=== PATIENT | female | born 1975 | race Caucasian/White ===

== ENCOUNTER → 2019-07-25 | Outpatient (CLI) | payer OTHER ==
--- NOTE | 2019-07-26 10:26 | MM ---
Reason for exam: screening (asymptomatic). Last mammogram was performed 3 years and 8 months ago. History: Took hormonal contraceptives for 3 years. Physical Findings: A clinical breast exam by your physician is recommended on an annual basis and results should be correlated with mammographic findings. MG 3D Screening Mammo W/Cad Bilateral CC and MLO view(s) were taken. Prior study comparison: December 03, 2015, bilateral MG 3d screening mammo w/cad. November 08, 2012, CAD bilateral diagnostic mammogram. The breast tissue is extremely dense which could obscure a lesion on mammography. There is a questionable 1.4cm obscbured mass in the upper outer quadrant 10cm from nipple within extremely dense fiborglandular tissue. There are regional right upper outer quadrant calcifications spanning 3.4cm from nipple to 10cm from nipple. No suspicious abnormality on the left breast. ASSESSMENT: Incomplete: need additional imaging evaluation, BI-RAD 0 RECOMMENDATION: Special view mammogram and ultrasound of the right breast. [facility] will attempt to contact patient to return for supplemental views and ultrasound.
== END | disposition home or self-care (01) ==
LOC: RADMAMWWP 09:54
PROVIDERS: ATTEND Family Medicine
DX: Z12.31 Encounter for screening mammogram for malignant neoplasm of breast (principal)
CPT/HCPCS: 77063; 77067

== ENCOUNTER → 2019-08-09 | Outpatient (CLI) | payer OTHER ==
--- NOTE | 2019-08-10 13:36 | MM ---
Reason for exam: additional evaluation requested from abnormal screening. Last mammogram was performed less than 1 month ago. History: Family history of breast cancer in aunt. Took hormonal contraceptives for 3 years. Physical Findings: Nurse did not find any significant physical abnormalities on exam. MG 3D Work Up W/Cad RT CC and MLO view(s) were taken of the right breast. Prior study comparison: July 25, 2019, bilateral MG 3d screening mammo w/cad. December 03, 2015, bilateral MG 3d screening mammo w/cad. The breast tissue is extremely dense which could obscure a lesion on mammography. There are segmental right upper outer quadrant calcifications spanning 8cm with only few non-grouped calcifications seen in 2016. These results were verbally communicated with the patient and result sheet given to the patient on 08/09/19. ASSESSMENT: Incomplete: need additional imaging evaluation, BI-RAD 0 RECOMMENDATION: Ultrasound of the right breast.
--- NOTE | 2019-08-10 13:38 | USB ---
Reason for exam: additional evaluation requested from abnormal screening. History: Family history of breast cancer in aunt. Took hormonal contraceptives for 3 years. US Breast Workup Limited RT Right limited breast ultrasound including focal area of concern, retroareolar and axilla demonstrates a 1.1 x 1.1 x 0.6cm oval, clustered, cystic lesion at 10 o'clock, a 0.9 x 1.2 x 0.5cm oval, cystic lesion at 10 o'clock, a 0.5 x 0.8 x 0.5cm oval, clustered, cystic lesion at 11 o'clock, a 0.5 x 0.5 x 0.4cm oval, cystic lesion at 11:30 and a 1.5 x 2.0 x 1.0cm oval axilla node. Benign. These results were verbally communicated with the patient and result sheet given to the patient on 08/09/19. ASSESSMENT: Suspicious, BI-RAD 4 RECOMMENDATION: Stereotactic core biopsy of the right breast. Called Dr. Garcia's office with mammographic findings and has scheduled an appointment for the patient for 08/24/19 at 4:[address] Lopez. Biopsy scheduled for 08/25/19 at 8:00. PRELIMINARY REPORT CALLED AND FAXED TO DR. LOPEZ ON 08/10/19.
== END | disposition home or self-care (01) ==
LOC: RADMAMWWP 13:31
PROVIDERS: ATTEND Family Medicine
DX: R92.8 Other abnormal and inconclusive findings on diagnostic imaging of breast (principal)
CPT/HCPCS: 77061; 77065

== ENCOUNTER → 2019-08-24 | Outpatient (CLI) | payer OTHER ==
[2019-08-24 16:28] VITALS: BP 143/95; PULSE 83; RESP 16; TEMP 98; BMI 54.8
--- NOTE | 2019-08-24 17:11 | P.GSHP ---
History of Present Illness H&P Date: 08/24/19 Chief Complaint: abnormal right breast mammogram Jazzy is a 44-year-old white female who underwent a routine screening mammogram on . On that mammogram she was noted to have some right breast upper outer quadrant calcifications spanning 3.4 cm from the nipple just 10 cm from the nipple. She therefore underwent a diagnostic right breast mammogram which again revealed the microcalcifications. The patient also had a right breast ultrasound performed which revealed only benign findings. Was therefore recommended she undergo a right breast stereotactic core biopsy. The patient does not feel anything of concern in her breasts. She is not complaining of any nipple discharge or breast changes. She does not complain of any skin changes. She has not had any recent trauma or infection in her breast. She has not had any surgery in her breasts. Family History: paternal aunt: cervical maternal great aunt: breast maternal grandfather: leukemia maternal uncle: colon cancer paternal uncle: cancer at 45 ? type Hormonal History; menarche: 11 , breast fed: yes, first born at 18 periods regular but heavy BCP: 2 years hormones: none Surgical history: 1. A laparoscopic evaluation to rule out tubal 2. tubal- Ligation Medical history: Anemia anxiety/depression Social History: smoke: stopped 2011, used to smoke 2/PPD alcohol: occasional drugs: none - Constitutional Constitutional: Reports sweats, Denies chills, Denies fever - EENT Eyes: bilateral blurred vision, denies pain Ears: bilateral: tinnitus Ears, nose, mouth and throat: Reports headache, Reports sore throat - Breasts Breasts: bilateral: as per HPI - Cardiovascular Cardiovascular: Denies chest pain, Denies shortness of breath - Respiratory Comment: former smoker - Gastrointestinal Gastrointestinal: Reports diarrhea - Genitourinary (Female) Genitourinary: Denies dysuria, Denies hematuria - Menstruation Menstruation: Reports period heavy - Musculoskeletal Musculoskeletal: Denies myalgias - Integumentary Integumentary: Reports pruritus, Reports rash - Neurological Neurological: Denies numbness, Denies weakness - Psychiatric Psychiatric: Reports anxiety, Reports depression - Endocrine Endocrine: Reports fatigue, Denies weight change - Hematologic/Lymphatic Hematologic/Lymphatic: Reports as per HPI - Allergic/Immunologic Allergic/Immunologic: Reports seasonal allergies Past Medical History History of Any Multi-Drug Resistant Organisms: None Reported Smoking Status: Former smoker Medications and Allergies Home Medications Medication Instructions Recorded Confirmed Type FLUoxetine HCL [PROzac] 40 mg PO DAILY 08/12/19 08/24/19 History Ferrous Sulfate [Feosol] 325 mg PO DAILY 08/12/19 08/24/19 History Multivitamin [Multivitamins Adult 1 each PO DAILY 08/12/19 08/24/19 History Gummies] Allergies Allergy/AdvReac Type Severity Reaction Status Date / Time No Known Allergies Allergy Verified 08/12/19 14:59 Surgical - Exam Vital Signs Temp Pulse Resp BP 98.0 F 83 16 143/95 08/24/19 16:06 08/24/19 16:06 08/24/19 16:06 08/24/19 16:06 BMI 54.8 - General obese - Eyes normal ocular movement - ENT normal pinna, normal nares, no hearing loss - Neck no masses, trachea midline, no lymphadectomy - Respiratory normal expansion - Cardiovascular Rhythm: regular Heart Sounds: normal: S1, S2 - Abdomen Abdomen: soft, non tender, no guarding, no rigid, no rebound - Integumentary normal turgor - Neurologic no disoriented, no combative - Musculoskeletal normal gait, normal posture - Psychiatric oriented to time, oriented to person, oriented to place, speech is normal, memory intact breast exam: Breasts size 44D ptosis grade 3 Right breast: Multi-positional exam no dominant masses or nodules of concern, fibrocystic changes Right axilla: No adenopathy of concern Left breast: Multiple positional exam or dominant masses or nodules of concern, fibrocystic changes Left axilla: No adenopathy of concern Results ultrasound results reviewed Assessment and Plan Assessment: Impression/plan: 1. Mammographic abnormality right breast, sterotactic core biopsy 2. fibrocystic breast changes 3. Anxiety/depression 4. obesity Risk and benefits of stereo biopsy discussed with the patient. These include bleeding infection reaction to the anesthetic inability to identify the lesion and the possibility because in her particular case this is a lower body area may require more than one biopsy. Approximately 40 minutes spent with the patient with greater than 50% face time. Dr. Garcia
== END | disposition home or self-care (01) ==
LOC: WWCWWP 15:50
PROVIDERS: ATTEND Surgery
DX: Z53.9 Procedure and treatment not carried out, unspecified reason (principal)

== ENCOUNTER → 2019-08-25 | Day surgery (SDC) | payer OTHER ==
[2019-08-25 07:28] VITALS: RESP 16; BMI 55.7
[2019-08-25 08:45] VITALS: BP 152/94; PULSE 83; TEMP 98.4
--- NOTE | 2019-08-25 12:01 | P.PCN ---
Date of Procedure: 08/25/19 Preoperative Diagnosis: Calcifications of concern right breast upper outer quadrant on mammogram Postoperative Diagnosis: same Procedure(s) Performed: Right breast stereotactic core biopsy Anesthesia: local Surgeon: Kirstie Lopez Estimated Blood Loss (ml): 0.05 Pathology: other (breast tissue) Condition: stable Disposition: same day Indications for Procedure: Microcalcifications of concern right breast upper outer quadrant Operative Findings: Calcifications noted in the biopsy specimen Description of Procedure: The patient is a 44-year-old white female who was noted to have microcalcifications of concern in the right breast in the upper outer quadrant region. She was recommended to undergo a stereotactic core biopsy. The risks and benefits of the procedure were discussed with the patient and she wished to proceed. The patient was brought to the stereotactic core biopsy room. She was positioned on the radiology table. A restrike hammer operator film was obtained and the area of concern was identified. The approach was lateral to medial. After the area had been identified calcifications of concern were targeted. The breast was prepped using Betadine. 20 mL of 1% lidocaine was used to anesthetize the area of jim rn. A 9-gauge vacuum assisted rotating core biopsy needle was driven to the correct coordinates. Initially core biopsies between 11 through 12 to 1:00 were obtained. Radiograph of the specimen did not reveal the microcalcifications as well as we would have liked to see. Therefore a circumferential sampling was obtained. A total of 18 secimens were obatained. Radiograph of the specimen did reveal the microcalcifications of concern. A Top-roving marker was placed. Radiograph revealed this to be in the correct location. The patient tolerated the procedure in stable condition. Specimen was sent to pathology. The patient will follow with Dr. Ram next week.
--- NOTE | 2019-08-25 12:10 | MM ---
EXAMINATION TYPE: MG stereo VAD BX RT DATE OF EXAM: 08/25/2019 COMPARISON: Recent mammogram dated 08/09/2019 CLINICAL HISTORY: Indeterminate right breast calcifications TECHNIQUE: Stereotactic guided core biopsy of right breast. FINDINGS: The procedure of stereotactic guided core biopsy was explained to the patient. Benefits, alternatives, and risks were discussed. An informed consent was then obtained. Preprocedural timeout was performed. The shortness pathway for biopsy was chosen. Shortness pathway was CC from above approach. I performed the localization, then surgeon, Dr. Yo Kirkland performed the remainder of the procedure. A vacuum assisted biopsy gun was used to obtain multiple core samples. The patient tolerated the procedure well without any immediate complication. The patient was kept in the radiology department for short stay after the procedure and then discharged home in stable condition. Targeted calcifications are identified in specimen mammogram. Post biopsy mammogram shows the clip to appear in satisfactory position relative to the targeted area of concern on the preprocedure images. IMPRESSION: SUCCESSFUL, UNCOMPLICATED STEREOTACTIC GUIDED CORE BIOPSY OF SEGMENTAL CALCIFICATIONS IN THE UPPER-OUTER QUADRANT OF THE RIGHT BREAST SPANNING APPROXIMATELY 8 CM, FULL PATHOLOGY RESULTS TO FOLLOW. Pathology Results: Benign RIGHT BREAST, STEREOTACTIC NEEDLE CORE BIOPSY: Fibrocystic changes including sclerosing adenosis with calcifications, fibrosis, cysts, apocrine metaplasia and mild usual type ductal hyperplasia. Focal pseudoangiomatous stromal hyperplasia (PASH). Recommendation Follow up mammogram of the right breast in 6 months. Surgical consult of the right breast. Incidental PASH MTDD
== END ==
LOC: RADMAMWWP 07:10
PROVIDERS: ATTEND Surgery
DX: N60.11 Diffuse cystic mastopathy of right breast (principal); N60.21 Fibroadenosis of right breast; N60.81 Other benign mammary dysplasias of right breast; N64.89 Other specified disorders of breast
CPT/HCPCS: 88305; 19081; A4648; J2001

== ENCOUNTER → 2019-09-01 | Outpatient (CLI) | payer OTHER ==
[2019-09-01 13:49] VITALS: BP 143/90; PULSE 85; RESP 18; TEMP 97.9; BMI 55.3
--- NOTE | 2019-09-01 14:27 | P.PN ---
Subjective Progress Note Date: 09/01/19 Principal diagnosis: results of stero-biopsy Jazzy is a 44-year-old white female [place] [id number]. On that mammogram she was noted to have some right breast upper outer quadrant calcifications spanning 3.4 cm from the nipple just 10 cm f rom the nipple. She therefore underwent a diagnostic right breast mammogram which again revealed the microcalcifications. The patient also had a right breast ultrasound performed which revealed only benign findings. Was therefore recommended she undergo a right breast stereotactic core biopsy. The patient does not feel anything of concern in her breasts. She is not complaining of any nipple discharge or breast changes. She does not complain of any skin changes. She has not had any recent trauma or infection in her breast. She has not had any surgery in her breasts. [place] [id number]. Pathology revealed fibrocystic changes including sclerosing adenosis with calcifications, fibrosis, cysts, apocrine metaplasia and mild usual type ductal hyperplasia. Focal pseudo-angiomatous stromal hyperplasia was noted. The patient has no complaints following her procedure. The patient drinks coffee daily, and DRMasha Kendrick on the weekends. She does not smoke and is not exposed to secondhand smoke. She does not eat chocolate often. She does not take any hormones. She does eat some soy products. Family History: paternal aunt: cervical maternal great aunt: breast maternal grandfather: leukemia maternal uncle: colon cancer paternal uncle: cancer at 45 ? type Hormonal History; menarche: 11 , breast fed: yes, first born at 18 periods regular but heavy BCP: 2 years hormones: none Surgical history: 1. A laparoscopic evaluation to rule out tubal 2. tubal- Ligation Medical history: Anemia anxiety/depression Social History: smoke: stopped 2011, used to smoke 2/PPD alcohol: occasional drugs: none - Constitutional Constitutional: Reports sweats, Denies chills, Denies fever - EENT Eyes: bilateral blurred vision, denies pain Ears: bilateral: tinnitus Ears, nose, mouth and throat: Reports headache, Reports sore throat - Breasts Breasts: bilateral: as per HPI - Cardiovascular Cardiovascular: Denies chest pain, Denies shortness of breath - Respiratory Comment: former smoker - Gastrointestinal Gastrointestinal: Reports diarrhea - Genitourinary (Female) Genitourinary: Denies dysuria, Denies hematuria - Menstruation Menstruation: Reports period heavy - Musculoskeletal Musculoskeletal: Denies myalgias - Integumentary Integumentary: Reports pruritus, Reports rash - Neurological Neurological: Denies numbness, Denies weakness - Psychiatric Psychiatric: Reports anxiety, Reports depression - Endocrine Endocrine: Reports fatigue, Denies weight change - Hematologic/Lymphatic Hematologic/Lymphatic: Reports as per HPI - Allergic/Immunologic Allergic/Immunologic: Reports seasonal allergies Past Medical History History of Any Multi-Drug Resistant Organisms: None Reported Smoking Status: Former smoker Objective - Vital Signs Vital signs: Vital Signs Temp 97.9 F 09/01/19 13:45 Pulse 85 09/01/19 13:45 Resp 18 09/01/19 13:45 BP 143/90 09/01/19 13:45 Pulse Ox 97 09/01/19 13:45 Intake & Output 08/31/19 09/01/19 09/01/19 18:59 06:59 18:59 Weight 132.903 kg - Exam BMI 55.4 - Constitutional General appearance: Present: obese - EENT Eyes: Present: EOMI ENT: Present: hearing grossly normal - Neck Neck: Present: normal ROM - Respiratory Respiratory: bilateral: CTA - Cardiovascular Rhythm: regular Heart sounds: normal: S1, S2 - Integumentary Integumentary: Present: normal turgor - Musculoskeletal Musculoskeletal: Present: gait normal - Psychiatric Psychiatric: Present: A&O x's 3, appropriate affect, intact judgment & insight - Additional findings Additional findings: Right breast: Minimal ecchymosis, no evidence of infection at biopsy site Assessment and Plan Assessment: Impression: 1. Stereotactic core biopsy right breast, pathology benign 2. Fibrocystic breast changes 3. Obesity 4. Anxiety depression Patient and daughter has been notified of biopsy results. The understand that she does not have cancer. Also understand routine surveillance which would be a repeat right breast mammogram in 6 months time with physician exam at that time. If these results are benign she will most likely follow with primary care doctor. Ectopic catheter-related beverages as well as further products may exacerbate the fibrocystic breast changes. The patient states she is going to attempt to stay away from these products. Plan: 1. Right breast mammogram 6 months with physician exam at that time Cc: Dr. Garcia
== END ==
LOC: WWCWWP 13:34
PROVIDERS: ATTEND Surgery
DX: Z53.9 Procedure and treatment not carried out, unspecified reason (principal)

== ENCOUNTER → 2020-02-29 | Outpatient (CLI) | payer BC ==
--- NOTE | 2020-03-02 07:24 | MM ---
Reason for exam: follow-up at short interval from prior study. Last mammogram was performed 7 months ago. History: Family history of breast cancer in maternal aunt at age 60. Benign MG stereo VAD BX RT of the right breast, August 25, 2019. Took hormonal contraceptives for 3 years. Physical Findings: Nurse did not find any significant physical abnormalities on exam. MG 3D Diag Mammo W/Cad RT CC and MLO view(s) were taken of the right breast. Prior study comparison: August 09, 2019, right breast MG 3d work up w/cad RT. July 25, 2019, bilateral MG 3d screening mammo w/cad. The breast tissue is extremely dense which could obscure a lesion on mammography. Benign calcifications in the right breast. Previous mammotome biopsy in the right breast. These results were verbally communicated with the patient and result sheet given to the patient on 02/29/20. ASSESSMENT: Benign, BI-RAD 2 RECOMMENDATION: Return to routine screening mammogram schedule for both breasts. Back on schedule.
== END | disposition home or self-care (01) ==
LOC: RADMAMWWP 14:10
PROVIDERS: ATTEND Surgery
DX: R92.8 Other abnormal and inconclusive findings on diagnostic imaging of breast (principal)
CPT/HCPCS: 77061; 77065

== ENCOUNTER → 2020-03-01 | Outpatient (CLI) | payer OTHER ==
[2020-03-01 15:32] VITALS: BP 142/88; PULSE 83; RESP 18; TEMP 98.3
--- NOTE | 2020-03-01 15:36 | P.PN ---
Subjective Progress Note Date: 03/01/20 Principal diagnosis: status post sterocore biopsy august 2019/benign Jazzy is a 44-year-old white female who underwent a routine screening mammogram on . On that mammogram she was noted to have some right breast upper outer quadrant calcifications spanning 3.4 cm from the nipple just 10 cm from the nipple. She therefore underwent a diagnostic right breast mammogram which again revealed the microcalcifications. The patient also had a right breast ultrasound performed which revealed only benign findings. Was therefore recommended she undergo a right breast stereotactic core biopsy. A stero core biopsy was preformed on 08-25-19. This was benign. She had a m ammogram done yesterday. The patient does not feel anything of concern in her breasts. She is not complaining of any nipple discharge or breast changes. She does not complain of any skin changes. She has not had any recent trauma or infection in her breast. She has not had any surgery in her breasts other than the core biopsy. Family History: paternal aunt: cervical maternal great aunt: breast maternal grandfather: leukemia maternal uncle: colon cancer paternal uncle: cancer at 45 ? type Hormonal History; menarche: 11 , breast fed: yes, first born at 18 periods regular but heavy BCP: 2 years hormones: none Surgical history: 1. A laparoscopic evaluation to rule out tubal 2. tubal- Ligation Medical history: Anemia anxiety/depression Social History: smoke: stopped 2011, used to smoke 2/PPD alcohol: occasional drugs: none - Constitutional Constitutional: Reports sweats, Denies chills, Denies fever - EENT Eyes: bilateral blurred vision, denies pain Ears: bilateral: tinnitus Ears, nose, mouth and throat: Reports headache, Reports sore throat - Breasts Breasts: bilateral: as per HPI - Cardiovascular Cardiovascular: Denies chest pain, Denies shortness of breath - Respiratory Comment: former smoker - Gastrointestinal Gastrointestinal: Reports diarrhea - Genitourinary (Female) Genitourinary: Denies dysuria, Denies hematuria - Menstruation Menstruation: Reports period heavy - Musculoskeletal Musculoskeletal: Denies myalgias - Integumentary Integumentary: Reports pruritus, Reports rash - Neurological Neurological: Denies numbness, Denies weakness - Psychiatric Psychiatric: Reports anxiety, Reports depression - Endocrine Endocrine: Reports fatigue, Denies weight change - Hematologic/Lymphatic Hematologic/Lymphatic: Reports as per HPI - Allergic/Immunologic Allergic/Immunologic: Reports seasonal allergies Past Medical History History of Any Multi-Drug Resistant Organisms: None Reported Smoking Status: Former smoker Medications and Allergies Home Medications Medication Instructions Recorded Confirmed Type FLUoxetine HCL [PROzac] 40 mg PO DAILY 08/12/19 08/24/19 History Ferrous Sulfate [Feosol] 325 mg PO DAILY 08/12/19 08/24/19 History Multivitamin [Multivitamins Adult 1 each PO DAILY 08/12/19 08/24/19 History Gummies] Allergies Allergy/AdvReac Type Severity Reaction Status Date / Time No Known Allergies Allergy Verified 08/12/19 14:59 Objective - Vital Signs Vital signs: Intake & Output 02/29/20 03/01/20 03/01/20 18:59 06:59 18:59 Weight 136.078 kg - Exam BMI 55.8 - Constitutional General appearance: Present: obese - EENT Eyes: Present: EOMI ENT: Present: hearing grossly normal - Neck Neck: Present: normal ROM - Respiratory Respiratory: bilateral: CTA - Cardiovascular Rhythm: regular Heart sounds: normal: S1, S2 - Gastrointestinal General gastrointestinal: Present: normal bowel sounds, soft - Integumentary Integumentary: Present: normal turgor - Musculoskeletal Musculoskeletal: Present: gait normal - Psychiatric Psychiatric: Present: A&O x's 3, appropriate affect, intact judgment & insight - Additional findings Additional findings: breast exam: BRA 44D inspection: ptosis grade 3, no nipple discharge or changes of concern Palpation: Right breast: Multiple positional exam no dominant masses or nodules of concern fibrocystic changes Right axilla: No adenopathy of concern Left breast: Multi-positional exam no dominant masses or nodules of concern, fibrocystic changes Left axilla: No adenopathy of concern Assessment and Plan Assessment: Impression: 1. Fibrocystic breast changes 2. Patient 6 months status post stereotactic core biopsy breast 3. Repeat right breast mammogram results pending Plan: 1. Confirmed right breast mammogram benign 2. If above benign bilateral mammogram in 6 months with physician exam at that time CC: Dr. Garcia encounter 15 minutes, > 50% of time in planning and counselling Time with Patient: Less than 30
== END | disposition home or self-care (01) ==
LOC: WWCWWP 15:17
PROVIDERS: ATTEND Surgery
DX: Z53.9 Procedure and treatment not carried out, unspecified reason (principal)

== ENCOUNTER → 2020-08-28 | Outpatient (CLI) | payer BC, OTHER ==
--- NOTE | 2020-08-28 09:21 | MM ---
Reason for exam: follow-up at short interval from prior study. Last mammogram was performed 6 months ago. History: Family history of breast cancer in maternal aunt at age 60. Benign MG stereo VAD BX RT of the right breast, August 25, 2019. Took hormonal contraceptives for 3 years. Physical Findings: Nurse did not find any significant physical abnormalities on exam. MG 3D Diag Mammo W/Cad JAMIE Bilateral CC and MLO view(s) were taken. Prior study comparison: February 29, 2020, right breast MG 3d diag mammo w/cad RT. August 09, 2019, right breast MG 3d work up w/cad RT. The breast tissue is heterogeneously dense. This may lower the sensitivity of mammography. Stable benign calcifications. There is no discrete abnormality. No significant new findings when compared with previous films. These results were verbally communicated with the patient and result sheet given to the patient on 08/28/20. ASSESSMENT: Benign, BI-RAD 2 RECOMMENDATION: Routine screening mammogram of both breasts in 1 year.
== END | disposition home or self-care (01) ==
LOC: RADMAMWWP 08:23
PROVIDERS: ATTEND Surgery
DX: R92.8 Other abnormal and inconclusive findings on diagnostic imaging of breast (principal)
CPT/HCPCS: 77062; 77066

== ENCOUNTER → 2020-09-06 | Outpatient (CLI) | payer BC, OTHER ==
[2020-09-06 16:05] VITALS: BP 139/88; PULSE 108; RESP 16; TEMP 98.3
--- NOTE | 2020-09-06 16:05 | P.PN ---
Subjective Progress Note Date: 09/06/20 Principal diagnosis: fibrocystic breast changes Jazzy is a 44-year-old white female [place] [id number]. On that mammogram she was noted to have some right breast upper outer quadrant calcifications spanning 3.4 cm from the nipple just 10 cm from the nipple. She therefore underwent a diagnostic right breast mammogram which again revealed the microcalcifications. The patient also had a right breast ultrasound performed which revealed only benign findings. Was therefore recommended she undergo a right breast stereotactic core biopsy. A stero core biopsy was preformed on 08-25-19. This was benign. The patient does not feel anything of concern in her breasts. She is not complaining of any nipple discharge or breast changes. She does not complain of any skin changes. She has not had any recent trauma or infection in her breast. She has not had any surgery in her breasts other than the core biopsy. She had a bilateral mammogram performed on this was benign BIRADS 2. Family History: paternal aunt: cervical maternal great aunt: breast maternal grandfather: leukemia maternal uncle: colon cancer paternal uncle: cancer at 45 ? type Hormonal History; menarche: 11 , breast fed: yes, first born at 18 periods regular but heavy BCP: 2 years hormones: none Surgical history: 1. A laparoscopic evaluation to rule out tubal 2. tubal- Ligation Medical history: Anemia anxiety/depression Social History: smoke: stopped 2011, used to smoke 2/PPD alcohol: occasional drugs: none - Constitutional Constitutional: Reports sweats, Denies chills, Denies fever - EENT Eyes: bilateral blurred vision, denies pain Ears: bilateral: tinnitus Ears, nose, mouth and throat: Reports headache, Reports sore throat - Breasts Breasts: bilateral: as per HPI - Cardiovascular Cardiovascular: Denies chest pain, Denies shortness of breath - Respiratory Comment: former smoker - Gastrointestinal Gastrointestinal: Reports diarrhea - Genitourinary (Female) Genitourinary: Denies dysuria, Denies hematuria - Menstruation Menstruation: Reports period heavy - Musculoskeletal Musculoskeletal: Denies myalgias - Integumentary Integumentary: Reports pruritus, Reports rash - Neurological Neurological: Denies numbness, Denies weakness - Psychiatric Psychiatric: Reports anxiety, Reports depression - Endocrine Endocrine: Reports fatigue, Denies weight change - Hematologic/Lymphatic Hematologic/Lymphatic: Reports as per HPI - Allergic/Immunologic Allergic/Immunologic: Reports seasonal allergies Objective - Vital Signs Vital signs: Intake & Output 09/05/20 09/06/20 09/06/20 18:59 06:59 18:59 Weight 141.521 kg - Exam BMI 58 - Constitutional General appearance: Present: morbidly obese - EENT Eyes: Present: EOMI ENT: Present: hearing grossly normal - Neck Neck: Present: normal ROM - Respiratory Respiratory: bilateral: CTA - Cardiovascular Rhythm: regular Heart sounds: normal: S1, S2 - Gastrointestinal General gastrointestinal: Present: normal bowel sounds, soft - Integumentary Integumentary: Present: normal turgor - Musculoskeletal Musculoskeletal: Present: gait normal - Psychiatric Psychiatric: Present: A&O x's 3, appropriate affect - Additional findings Additional findings: breast exam: BRA: 44D inspection: bilateral grade 3 ptosis palpation: right breast: multipositional exam no dominant masses or nodules of concern, fibrocystic changes Right axilla: No adenopathy of concern Left breast: Multi-positional exam no dominant masses or nodules of concern fibrocystic changes Left axilla: No adenopathy of concern Assessment and Plan Assessment: Impression: 1. Fibrocystic breast changes 2. Right breast slightly larger than left breast 3. BMI 58.0 4. anemia 5. anxiety/depression Plan: 1. Repeat bilateral mammogram 1 year 2. Patient has expressed desire to lose weight she will continue to attempt to do so Cc: Dr. Garcia encounter 15 minutes, > 50% of time on planning and counselling
== END | disposition home or self-care (01) ==
LOC: WWCWWP 15:39
PROVIDERS: ATTEND Surgery
DX: Z53.9 Procedure and treatment not carried out, unspecified reason (principal)

== ENCOUNTER → 2021-08-30 | Outpatient (CLI) | payer BC ==
--- NOTE | 2021-09-02 10:51 | MM ---
Reason for exam: screening (asymptomatic). Last mammogram was performed 1 year ago. History: Family history of breast cancer in maternal aunt at age 60. Benign MG stereo VAD BX RT of the right breast, August 25, 2019. Took hormonal contraceptives for 3 years. Physical Findings: A clinical breast exam by your physician is recommended on an annual basis and results should be correlated with mammographic findings. MG 3D Screening Mammo W/Cad Bilateral CC, MLO, and XCCL view(s) were taken. Prior study comparison: August 28, 2020, bilateral MG 3d diag mammo w/cad JAMIE. February 29, 2020, right breast MG 3d diag mammo w/cad RT. The breast tissue is heterogeneously dense. This may lower the sensitivity of mammography. Finding: There are diffuse/scattered, regional, fine calcifications in the upper outer quadrant, middle position of the right breast. Previous mammotome biopsy in the right breast. No significant changes in finding since August 28, 2020 and February 29, 2020. ASSESSMENT: Benign, BI-RAD 2 RECOMMENDATION: Routine screening mammogram of both breasts in 1 year.
== END | disposition home or self-care (01) ==
LOC: RADMAMWWP 09:25
PROVIDERS: ATTEND Surgery
DX: Z12.31 Encounter for screening mammogram for malignant neoplasm of breast (principal); Z80.3 Family history of malignant neoplasm of breast
CPT/HCPCS: 77063; 77067

== ENCOUNTER → 2021-09-23 | Outpatient (CLI) | payer BC ==
--- NOTE | 2021-09-23 22:44 | US ---
EXAMINATION TYPE: US pelvis complete transvag DATE OF EXAM: 09/23/2021 COMPARISON: NONE CLINICAL HISTORY: N92.0 FREQUENT MENSTRUATION. TECHNIQUE: Transvaginal (TV) and Transabdominal (TA) . Transabdominal sonographic images of the pel vis were acquired. Transvaginal sonographic images were medically necessary to better assess the fol lowing anatomy: uterus and ovaries Date of LMP: 09-13-21 EXAM MEASUREMENTS: Uterus: 11.2 x 4.3 x 5.6 cm Endometrial Stripe: 1.0 cm Right Ovary: not visualized Left Ovary: not visualized Morbidly obese patient 1. Uterus: Anteverted, peripheral fibroid measuring 3.8 x 2.9 x 3.2cm 2. Endometrium: wnl 3. Right Ovary: not visualized 4. Left Ovary: not visualized 5. Bilateral Adnexa: wnl 6. Posterior cul-de-sac: wnl Heterogeneous anteverted uterus. Subserosal anterior uterine fibroid measures 3.8 cm long axis causin g lobulated contour. Endometrial stripe measures thickened. No free fluid in pelvic cul-de-sac. Neither ovary identified. No suspicious adnexal mass is seen. IMPRESSION: Uterine fibroid disease. Slight abnormal thickening of endometrial stripe for patient's l ast known menstrual period or late proliferative phase of menstrual cycle.
== END | disposition home or self-care (01) ==
LOC: RADUSWWP 16:14
PROVIDERS: ATTEND Family Medicine
DX: D25.2 Subserosal leiomyoma of uterus (principal); R93.89 Abnormal findings on diagnostic imaging of other specified body structures
CPT/HCPCS: 76830; 76856

== ENCOUNTER → 2023-12-25 | Outpatient (CLI) | payer BC ==
--- NOTE | 2023-12-30 07:35 | MM ---
Reason for Exam: Screening (asymptomatic). Last mammogram was performed 2 year(s) and 4 month(s) ago. Patient History: Menarche at age 12. First Full-Term at age 18. Patient has history of breast feeding. Patient used Hormonal Contraceptives for 3 years. 08/25/2019, Benign Core Biopsy on the right side. Maternal aunt had breast cancer, age 60. Risk Values: Letty 5 year model risk: 0.8%. NCI Lifetime model risk: 7.8%. Prior Study Comparison: 02/29/2020 Right Diagnostic Mammogram, [facility]. 08/28/2020 Bilateral Diagnostic Mammogram, [facility]. 08/30/2021 Bilateral Screening Mammogram, [facility]. Tissue Density: The breasts are heterogeneously dense, which may obscure small masses. Findings: Analyzed By CAD. Microclip right breast from prior biopsy. There is no suspicious group of microcalcifications or new suspicious mass in either breast. Overall Assessment: Negative, BI-RAD 1 Management: Screening Mammogram of both breasts in 1 year. . Patient should continue monthly self-breast exams. A clinical breast exam by your physician is recommended on an annual basis. This exam should not preclude additional follow-up of suspicious palpable abnormalities. Note on Letty scores and lifetime risk: 1. A Letty score greater than 3% is considered moderate risk. If this is the case, consider specialist referral to assess eligibility for a risk reducing agent. 2. If overall lifetime risk for the development of breast cancer is 20% or higher, the patient may qualify for future screening with alternating mammogram and breast MRI. Electronically signed and approved by: Suleman Rahman M.D. Radiologist
== END | disposition home or self-care (01) ==
LOC: RADMAMWWP 15:17
PROVIDERS: ATTEND Family Medicine
DX: Z12.31 Encounter for screening mammogram for malignant neoplasm of breast (principal); Z80.3 Family history of malignant neoplasm of breast
CPT/HCPCS: 77063; 77067

== ENCOUNTER 2024-02-19 13:19 | Day surgery (SDC) | payer BC ==
[~2024-02-19 13:19] MED LIST: LIDOCAINE 1% (10MG/ML) FOR IV START INTRADERMA PRN
[2024-02-19] MEDS ORDERED: ONDANSETRON 4 MG/2 ML VIAL ONE (14:54)
[2024-02-19] MEDS: LACTATED RINGERS 1,000 ML IV SCH (15:00)
[2024-02-19] MEDS: ONDANSETRON 4 MG/2 ML VIAL IVP ONE (15:01)
[2024-02-19 15:27] VITALS: TEMP 98
[2024-02-19] MEDS ORDERED: PROPOFOL 10 MG/ML 20 ML VIAL IV ONE (15:57)
--- NOTE | 2024-02-19 16:09 | P.PCN ---
Date of Procedure: 02/19/24 Procedure(s) Performed: BRIEF HISTORY: Patient is a 48-year-old pleasant female scheduled for an elective colonoscopy as a part of screening for colon cancer. PROCEDURE PERFORMED: Colonoscopy. PREOPERATIVE DIAGNOSIS: Screening for colon cancer. IV sedation per Anesthesia. PROCEDURE: After informed consent was obtained, the patient, was brought into the endoscopy unit. IV sedation was administered by Anesthesia under continuous monitoring. Digital rectal examination was normal. Initially the Olympus CF-160 flexible video colonoscope was then inserted in the rectum, gradually advanced into the cecum without any difficulty. Careful examination was performed as the scope was gradually being withdrawn. Ileocecal valve and the appendiceal orifice were visualized and appeared normal. Prep was excellent. Mucosa of the cecum, ascending colon, transverse colon, descending colon, sigmoid colon, and rectum appeared normal. Scattered sigmoid diverticulosis retroflexion was performed in the rectum and no lesions were seen. The patient tolerated the procedure well. IMPRESSION: Normal-appearing colon from rectum to cecum with no evidence of colorectal neoplasia. Scattered sigmoid diverticulosis. RECOMMENDATIONS: Findings of this examination were discussed with the patient as well as the family.. He was advised to have repeat screening colonoscopy in 10 years.
[2024-02-19 16:47] VITALS: BP 175/82; PULSE 86; RESP 15
== END 2024-02-19 16:42 | disposition home or self-care (01) ==
LOC: ORWHC2ENDO 13:19
PROVIDERS: ATTEND Internal Medicine Gastroenterology
DX: Z12.11 Encounter for screening for malignant neoplasm of colon (principal); K57.30 Diverticulosis of large intestine without perforation or abscess without bleeding; M19.90 Unspecified osteoarthritis, unspecified site; F32.A Depression, unspecified; Z79.899 Other long term (current) drug therapy
CPT/HCPCS: 81025; 45378; J2405; J2704

== ENCOUNTER → 2024-12-30 | Outpatient (CLI) | payer BC ==
--- NOTE | 2025-01-04 11:17 | P.PCN ---
Description of Procedure: CLINICAL: A home sleep apnea test has been done for confirmation of possible obstructive sleep apnea-hypopnea syndrome. DESCRIPTION OF PROCEDURE: RESULTS: Recording time was 9 hours 30 minutes. Evaluation time was 9 hours 18 minutes. Evaluation time is sufficient for making conclusion about results of the test. Raw data of sleep recording has been reviewed and is adequate. Respiratory channel showed 2 apneas and 111 hypopneas. Apnea-hypopnea index was 12.1 per hour. Pulse rate in the range between minimum 68, maximum 120, average 89 by computer calculation. Lowest desaturation was 84%. IMPRESSION: 1. Obstructive Sleep Apnea Hypopnea Syndrome. Patient presents with symptoms of significant excessive daytime sleepiness with Bryan Sleepiness Scale increased to 13. Please see other impressions from consultation. PLAN: 1. The patient will be started on auto-PAP treatment for correction of respiratory abnormallities during sleep. 2. I will see patient for follow up visit to discuss results of the test, evaluate clinical response on treatment with PAP therapy and make any necessary adjustments related to mask fitting, pressure, and humidification. 3. Watching and losing weight. 4. Sleep hygiene with regular time in bed for at least 8 hours. 5. No driving if feeling any sleepiness. Thank you very much for allowing me to participate in the management of your patient. Sincerely, Juan Perry MD, PhD, FAASM Diplomat of [place] [employer] Sleep Medicine Board of [place] [employer] [facility] [place] cc: Keenan Carballo MD
== END ==
LOC: 3 N SLEEP 13:09
PROVIDERS: ATTEND Internal Medicine
DX: G47.33 Obstructive sleep apnea (adult) (pediatric) (principal)

== ENCOUNTER → 2025-02-13 | Outpatient (CLI) | payer BC ==
--- NOTE | 2025-02-13 08:38 | MM ---
Reason for Exam: Screening (asymptomatic). Last mammogram was performed 1 year(s) and 1 month(s) ago. Patient History: Menarche at age 12. First Full-Term at age 18. Patient has history of breast feeding. Patient used Hormonal Contraceptives for 3 years. 08/25/2019, Benign Core Biopsy on the right side. Maternal aunt had breast cancer, age 60. Risk Values: Letty 5 year model risk: 0.8%. NCI Lifetime model risk: 7.7%. Prior Study Comparison: 08/28/2020 Bilateral Diagnostic Mammogram, [facility]. 08/30/2021 Bilateral Screening Mammogram, [facility]. 12/25/2023 Bilateral MG 3D screening mammo w/cad, [facility]. Tissue Density: The breasts are heterogeneously dense, which may obscure small masses. Findings: Analyzed By CAD. Mammotome biopsy clip in the right breast is redemonstrated. There are a few scattered benign-appearing round calcifications bilaterally redemonstrated. There is no suspicious new group of microcalcifications or new suspicious mass in either breast. Overall Assessment: Benign, BI-RAD 2 Management: Screening Mammogram of both breasts in 1 year. Some advise annual bilateral breast ultrasound surveillance in patients with background dense tissue. Patient should continue monthly self-breast exams. A clinical breast exam by your physician is recommended on an annual basis. This exam should not preclude additional follow-up of suspicious palpable abnormalities. Note on Letty scores and lifetime risk: 1. A Letty score greater than 3% is considered moderate risk. If this is the case, consider specialist referral to assess eligibility for a risk reducing agent. 2. If overall lifetime risk for the development of breast cancer is 20% or higher, the patient may qualify for future screening with alternating mammogram and breast MRI. [facility], , 02/13/2025 8:34 AM. Electronically signed and approved by: Red Plata M.D.
== END | disposition home or self-care (01) ==
LOC: RADMAMWWP 08:15
PROVIDERS: ATTEND Family Medicine
DX: Z12.31 Encounter for screening mammogram for malignant neoplasm of breast (principal); R92.333 Mammographic heterogeneous density, bilateral breasts; Z92.0 Personal history of contraception; Z80.3 Family history of malignant neoplasm of breast
CPT/HCPCS: 77063; 77067

== ENCOUNTER → 2025-03-08 | Outpatient (CLI) | payer BC ==
[2025-03-08 17:01] VITALS: BP 174/98; PULSE 94; RESP 12; TEMP 97.3
--- NOTE | 2025-03-08 17:22 | P.PROGSL ---
Subjective DATE: 03/08/2025 FOLLOW UP VISIT. Patient with obstructive sleep apnea hypopnea syndrome return to sleep center for follow-up visit. Recently patient had sleep study which documented obstructive sleep apnea hypopnea syndrome. Patient was initiated on PAP therapy and today is first visit after treatment was started. Patient was able to use PAP equipment every night for the whole night. The patient does not have significant problems with the mask, PAP pressure and humidification. Minong sleepiness scale is 9, which showed improvement com paring with the time before treatment during consultation when it was 13. I checked information from PAP unit. PAP unit pressure 5-14, average 9.3 cm H2O. Usage is 100% for more then 4 hours, average 7.2 hours per night. Leak is 11.6 l/m, which is in acceptable range. Apnea Hypopnea Index is 0.9, which is normal. MEDICATIONS: Please see below During physical exam: GENERAL: A pleasant patient without any distress. VITAL SIGNS: Please see below, weight 320.0 pounds. HEENT: PERRLA, EOMI.low position of soft palate, Mallapati 3. NECK: Supple. No JVD. LUNGS: Clear to percussion and to auscultation. Good air exchange. No wheezing or rhonchi. HEART: S1, S2 regular. ABDOMEN: Soft and nontender. Obese EXTREMITIES: No clubbing or cyanosis. E COMMERCE SPECIALIST: Awake, alert, and oriented x3. No focal deficit. Impressions: 1. Obstructive sleep apnea-hypopnea syndrome. Patient demonstrated great compliance with treatment, benefiting from treatment. 2. Obesity, patient increased weight on 25 pounds comparing with previous visit, BMI 59.5. 3. Depression. 4. Anxiety. 5. History of iron deficiency anemia. 6. Status post tubal ligation. 7. History of uterine fibroids. Plan: 1. Continue using PAP equipment every night for the whole night. 2. To change air filter at least 1-2 times per month. 3. PAP unit should stay lower then position of the head. 4. Advised patient to remove all remaining water from humidifier canister daily and make it dry after each usage. Refill canister with fresh distilled water before each usage. 5. Sleep hygiene with regular time in bed for at least 8 hours. 6. Precautions related to driving. No driving if feel any sleepiness. 7. I will maintain prescription for PAP supplies including mask, tube, filters. 8. Follow up visit in 8 months or earlier if patient has any problems. 9. Watching and losing weight. Thank you very much for allowing me to participate in the management of your patient. Juan Perry MD, PhD, FAASM. Diplomat of [place] [employer], Sleep Medicine Board by [place] [employer] [facility] [place] cc: Keenan Carballo MD Objective - Vital Signs Vital Signs: Vital Signs Temp 97.3 F L 03/08/25 17:00 Pulse 94 03/08/25 17:00 Resp 12 03/08/25 17:00 BP 174/98 03/08/25 17:00 Pulse Ox 94 L 03/08/25 17:00 FiO2 Intake & Output 03/07/25 03/08/25 03/08/25 18:59 06:59 18:59 Weight 145.15 kg Home Medications: Home Medications Medication Instructions Recorded Confirmed Type Ferrous Sulfate [Feosol] 325 mg PO QAM 08/12/19 12/07/24 History Cholecalciferol (Vitamin D3) 125 mcg PO DAILY 01/25/24 02/17/24 History [Vitamin D3 (125 MCG = 5,000 IU)] Aspirin/Acetaminophen/Caffeine 1 each PO DIRECTED PRN 02/17/24 02/17/24 History [Excedrin Migraine Caplet] Unk Multi Vitamin 1 tab PO DAILY 02/17/24 02/17/24 History Unk Probiotic 1 tab PO DAILY 02/17/24 02/17/24 History Venlafaxine HCl ER [Effexor Xr] 75 mg PO DAILY 12/07/24 12/07/24 History
== END ==
LOC: 3 N SLEEP 16:39
PROVIDERS: ATTEND Internal Medicine
DX: G47.33 Obstructive sleep apnea (adult) (pediatric) (principal); E66.9 Obesity, unspecified; F32.A Depression, unspecified; F41.9 Anxiety disorder, unspecified; Z68.43 Body mass index [BMI] 50.0-59.9, adult; Z98.51 Tubal ligation status; Z86.2 Personal history of diseases of the blood and blood-forming organs and certain disorders involving the immune mechanism; Z98.891 History of uterine scar from previous surgery; Z99.89 Dependence on other enabling machines and devices; Z87.891 Personal history of nicotine dependence
CPT/HCPCS: 99212